=== PATIENT | male | born 1965 | race Caucasian/White ===

== ENCOUNTER 2016-11-24 15:41 | Outpatient (CLI) ==
[2015-06-30 16:51] VITALS: BMI 24.1
[2016-11-24 16:04] LABS: BASOPHILS # (AUTO) 0.1 K/uL (0-0.2); BASOPHILS % (AUTO) 0.8 % (0.0-3.0); EOSINOPHILS # (AUTO) 0.4 K/ul (0.0-0.7); EOSINOPHILS % (AUTO) 3.7 % (0.0-7.0); HEMATOCRIT 43.2 % (42.0-52.0); HEMOGLOBIN 14.8 g/dl (14.0-18.0); IMMATURE GRANULOCYTE % (AUTO) 0.1 % (0.0-5.0); LYMPHOCYTES # (AUTO) 5.2 K/uL (0.60-3.4); MEAN CORPUSCULAR HEMOGLOBIN 30.1 pg (27.0-31.0); MEAN CORPUSCULAR HGB CONC 34.3 (31.8-35.4); MONOCYTES # (AUTO) 0.6 K/uL (0.4-2.0); MONOCYTES % (AUTO) 5.7 (0-10); NEUTROPHILS # (AUTO) 4.9 K/ul (2.0-6.9); NEUTROPHILS % (AUTO) 43.7; PLATELET COUNT 235 10^3/uL (140-440); RED BLOOD COUNT 4.91 10^6/ul (4.70-6.10); WHITE BLOOD COUNT 11.19 K/ul (4.2-10.2)
[2016-11-24 16:34] LABS: ALBUMIN 3.6 g/dL (3.4-5.0); ALBUMIN/GLOBULIN RATIO 1.29; ANION GAP 12.1; BILIRUBIN,TOTAL 0.41 mg/dL (0.00-1.20); BUN/CREATININE RATIO 14.42; CALCIUM 8.9 mg/dL (8.2-10.2); CREATININE 1.04 mg/dL (0.60-1.10); POTASSIUM 4.1 mmol/L (3.5-5.1); TOTAL PROTEIN 6.4 g/dL (6.4-8.2)
== END 2016-11-24 15:42 | disposition home or self-care (01) ==
LOC: LAB 15:41
PROVIDERS: ATTEND Nurse Practitioner Family
DX: R11.2 Nausea with vomiting, unspecified (principal)
CPT/HCPCS: 36415; 80053; 85025

== ENCOUNTER 2017-10-04 18:34 | Emergency (ER) ==
[2017-10-04 18:38] VITALS: BP 154/73; TEMP 98.2; BMI 21.1
--- NOTE | 2017-10-04 19:50 | ED.PDOC ---
General ED Provider: Dr. STIVEN DODGE Chief Complaint: Foot Pain/Injury Stated Complaint: Patient was in [facility] ER on 09-22, for the left foot injury and found to have fracture. his left foot is in Brace, did not see Ortho yet. Time Seen by Physician: 19:48 Mode of Arrival: Walk-In Information Source: Patient Primary Care Provider: STIVEN DODGE[facility] Nursing and Triage Documentation Reviewed and Agree: Yes Reviewed sepsis parameters & appropriate labs ordered?: No System Inflammatory Response Syndrome: Not Applicable Sepsis Protocol: For patient's 13 years and over: Temp is 96.8 and below OR 101 and greater Pulse >90 BPM Resp >20/minute Acutely Altered Mental Status Are patient's symptoms suggestive of a new infection, such as: -Pneumonia -Skin, Soft Tissue -Endocarditis -UTI -Bone, Joint Infection -Implantable Device -Acute Abdominal Infection -Wound Infection -Meningitis -Blood Stream Catheter Infection -Unknown Musculoskeletal Complaint Exam - Ankle/Foot Complaint/Exam Location of Injury: Reports: Left, Foot Mechanism of Injury: Reports: Trauma Symptoms Are: Reports: Still present Onset of Pain: Reports: Immediate Initial Severity: Moderate Current Severity: Moderate Location: Reports: Discrete Character: Reports: Aching, Throbbing Alleviating: Reports: None Aggravating: Reports: Movement, Weight bearing Able to Bear Weight: No Associated Signs and Symptoms: Denies: Swelling, Redness, Bruising, Fever, Weakness, Numbness, Tingling Gout Risk Factors: Reports: None Related Surgical History: Reports: None Lower Extremity Findings: Present: Swelling. Absent: Ecchymosis, Abnormal contour, Rotation Achilles Tendon Abnormality: No Differential Diagnosis: Closed Fracture Review of Systems - Review Of Systems Constitutional: Reports: No symptoms Eyes: Reports: No symptoms Ears, Nose, Mouth, Throat: Reports: No symptoms Respiratory: Reports: No symptoms Cardiac: Reports: No symptoms GI: Reports: No symptoms : Reports: No symptoms Musculoskeletal: Reports: Joint pain Skin: Reports: No symptoms Neurological: Reports: No symptoms Endocrine: Reports: No symptoms Hematologic/Lymphatic: Reports: No symptoms All Other Systems: Reviewed and Negative Past Medical History - Past Medical History Previously Healthy: Yes Endocrine: Reports: None Cardiovascular: Reports: None Respiratory: Reports: Asthma Hematological: Reports: None Gastrointestinal: Reports: None Genitourinary: Reports: None Neuro/Psych: Reports: None Musculoskeletal: Reports: Arthritis, Back Pain Cancer: Reports: None Other Pertinent Past Medical History: heat stroke - Surgical History General Surgical History: Reports: Appendectomy, Orthopedic (amputation of fingers), Other (bladder surgery) - Family History Family History: Reports: Unknown - Social History Smoking Status: Current every day smoker Hx Substance Use: No Alcohol Screening: None Physical Exam - Physical Exam Appearance: Ill-appearing Eyes: DOROTEO, EOMI, Conjunctiva clear ENT: Ears normal, Nose normal, Oropharynx normal Respiratory: Airway patent, Breath sounds clear, Breath sounds equal, Respirations nonlabored Cardiovascular: RRR, Pulses normal, No rub, No murmur GI/: Soft, Nontender, No masses, Bowel sounds normal, No Organomegaly Musculoskeletal: Normal strength, ROM intact, No edema, No calf tenderness Skin: Warm, Dry, Normal color Neurological: Sensation intact, Motor intact, Reflexes intact, Cranial nerves intact, Alert, Oriented Psychiatric: Affect appropriate, Mood appropriate Critical Care Note - Critical Care Note Total Time (mins): 15 Course - Course Orders, Labs, Meds: Orders Category Date Time Status FOOT, LEFT 3 VIEWS Stat RADS 10/04/17 19:16 Taken HEEL, LEFT (CALCANEUS) Stat RADS 10/04/17 19:08 Taken Vital Signs: Temp Pulse Resp BP Pulse Ox 10/04/17 18:35 98.2 F 91 H 18 154/73 H 98 Departure - Departure Time of Disposition: 19:52 Disposition: HOME SELF-CARE Discharge Problem: Foot fracture, left Qualifiers: Encounter type: subsequent encounter Fracture type: closed Fracture healing: with routine healing Qualified Code(s): S92.902D - Unspecified fracture of left foot, subsequent encounter for fracture with routine healing Instructions: Foot Fracture in Adults (ED) Condition: Stable Pt referred to PMD for follow-up: Yes Additional Instructions: off the foot NEEDS TO HAVE F/U WITH ORTHO USHA. Prescriptions: Hydrocodone/Acetaminophen [[place] 5-325 Tablet] 1 tab PO TID PRN #10 tablet PRN Reason: PAIN Allergies/Adverse Reactions: Allergies coconut Allergy (Severe, Verified 10/04/17 18:39) throat swells shellfish derived Allergy (Severe, Verified 10/04/17 18:39) throat swells shut insect venom Allergy (Verified 10/04/17 18:39) Bee stings Penicillins Adverse Reaction (Verified 10/04/17 18:39) Home Medications: Ambulatory Orders Albuterol Sulfate 0.083% Neb [Albuterol 0.083% Neb] 1 vial NEB RTQ6H PRN Hydrocodone/Acetaminophen [[place] 5-325 Tablet] 1 tab PO TID PRN #10 tablet 10/04 Disposition Discussed With: Patient
--- NOTE | 2017-10-04 22:44 | DI ---
EXAM: Left heel, two-view HISTORY: History fracture COMPARISON: None FINDINGS/IMPRESSION: Curvilinear lucency in the posterior inferior calcaneus without disruption of t he trabecular markings. This may represent an age indeterminate fracture versus trabecular variation. Recommend clinical correlation. No dislocation.
--- NOTE | 2017-10-04 22:47 | DI ---
EXAM: Left foot three views HISTORY: Fracture COMPARISON: None FINDINGS: Age indeterminate nondisplaced fracture base of first distal phalanx versus ossification c enter. The joints are normal. No focal soft tissue abnormality. IMPERSSION: 1. Age indeterminate nondisplaced fracture base of first distal phalanx versus ossification center. 2. The questioned age indeterminate fracture versus trabecular variation in the calcaneus described on radiograph of the calcaneus is not clearly visualized on radiograph of the foot. Report faxed
== END 2017-10-04 20:00 | disposition home or self-care (01) ==
LOC: ED 18:34
DX: S92.902D Unspecified fracture of left foot, subsequent encounter for fracture with routine healing (principal); F17.210 Nicotine dependence, cigarettes, uncomplicated
CPT/HCPCS: 99282